=== PATIENT | female | born 1990 | race African-American/Black ===

== ENCOUNTER 2020-08-05 19:55 | Emergency (ER) | payer SELFPAY ==
[~2020-08-05] VITALS: Ht 152.4 cm; Wt 99.8 kg
[2020-08-05] MEDS ORDERED: DOXYCYCLINE HY100 MG PO (20:32)
[2020-08-05] MEDS ORDERED: ACETAMINOPHEN500 MG PO (20:32)
[2020-08-05] MEDS ORDERED: IBUPROFEN IB200 MG PO (20:32)
[2020-08-05] MEDS ORDERED: CIPRO500 MG PO (20:32)
== END 2020-08-05 20:45 | disposition home or self-care (01) ==
LOC: FSED 20:30
DX: A64 Unspecified sexually transmitted disease (principal); R10.2 Pelvic and perineal pain; R30.0 Dysuria; F17.210 Nicotine dependence, cigarettes, uncomplicated
CPT/HCPCS: 81003; 81025; 99282